=== PATIENT | male | born 1970 | race Native Hawaiian/Other Pacific Islander ===

== ENCOUNTER 2020-01-23 17:58 | Emergency (ER) | payer OTHER ==
[~2020-01-23] VITALS: Ht 172.7 cm; Wt 79.4 kg
[2020-01-23 18:44] LABS: PLATELET COUNT 189 K/uL (142-355)
[2020-01-23 19:35] VITALS: BP 123/86; TEMP 98.2
[2020-01-24] MEDS ORDERED: DIVA500T2 PO (17:26)
[2020-01-24] MEDS ORDERED: FOLI400T2 PO (17:27)
[2020-01-24] MEDS ORDERED: THERA M PLUS PO (17:28)
[2020-01-24] MEDS ORDERED: SERT100T PO (17:29)
[2020-01-24] MEDS ORDERED: THIAMINE50 MG PO (17:30)
[2020-01-24] MEDS ORDERED: TRILEPTAL300 MG PO (17:30)
[2020-01-24] MEDS ORDERED: OLANZAPINE15 MG PO (17:32)
[2020-01-24] MEDS ORDERED: MELADOX3 MG PO (17:32)
[2020-01-24] MEDS ORDERED: TRAZ100T PO (17:33)
[2020-01-24] MEDS ORDERED: PANTPAK PO (17:34)
== END 2020-01-23 19:35 | disposition other institution (70) ==
LOC: ED 17:58
PROVIDERS: Family Medicine
DX: R46.89 Other symptoms and signs involving appearance and behavior (principal); E51.2 Wernicke's encephalopathy; Z04.6 Encounter for general psychiatric examination, requested by authority
CPT/HCPCS: 80053; 81000; 85027; 93005; 99283; 99285

== ENCOUNTER 2020-09-24 14:42 | Emergency (ER) | payer OTHER ==
[~2020-09-24] VITALS: Ht 177.8 cm; Wt 88.5 kg
[2020-09-24 14:42] VITALS: TEMP 97.7
[~2020-09-24 14:42] MED LIST: ACET-206 PO; ARIPIPRAZOLE10 MG PO; CETI10TA PO; CHOL100034 PO; DIPH25CA90 PO; DIVA500T2 PO; DIVALPROEX500 MG PO; ESCI10TA PO; FOLI1TAB26 PO; FOLI400T2 PO; HALO5INJ3 IM; MAGNSUS68 PO; MELADOX3 MG PO; MIRALAX 17GM PAK PO; NICOTINE T14 MG/241 TD; OLANZAPINE15 MG PO; OLANZAPINE5 MG PO; OXCARBAZEPIN300 MG PO; PANTOPRAZOLE 40MG TA PO; PANTPAK PO; QUET100T2 PO; SERT100T PO; THERA M PLUS PO; THIA100T8 PO; THIAMINE50 MG PO; TOPIRAMATE25 MG PO; TRAZ100T PO; TRILEPTAL300 MG PO
[2020-09-24 15:17] LABS: PLATELET COUNT 145 K/uL (142-355)
[2020-09-24 15:23] LABS: POTASSIUM 4.3 mmol/L (3.6-5.2)
[2020-09-24 16:28] VITALS: BP 99/57
[2020-09-24] MEDS ORDERED: DIVA500T2 PO ×2 (17:00→17:01)
[2020-09-24] MEDS ORDERED: PANTOPRAZOLE 40MG TA PO (17:02)
[2020-09-24] MEDS ORDERED: KP FOLIC ACID1 MG PO (17:03)
[2020-09-24] MEDS ORDERED: VITAMIN B1100 M1 PO (17:03)
[2020-09-24] MEDS ORDERED: VITAMIN D31000 UNI4 PO (17:04)
[2020-09-24] MEDS ORDERED: QUETIAPINE200 MG PO (17:05)
[2020-09-24] MEDS ORDERED: LIPITOR40 MG PO (17:06)
[2020-09-24] MEDS ORDERED: ESCITALOPRAM10 MG PO (17:07)
[2020-09-24] MEDS ORDERED: CETIRIZINE5 MG PO (17:07)
[2020-09-24] MEDS ORDERED: TOPIRAMATE50 MG PO (17:08)
[2020-09-24] MEDS ORDERED: LAMO100T PO (17:09)
== END 2020-09-24 16:28 | disposition other institution (70) ==
LOC: ED 14:42
PROVIDERS: Family Medicine
DX: R46.89 Other symptoms and signs involving appearance and behavior (principal); Z11.59 Encounter for screening for other viral diseases; Z04.6 Encounter for general psychiatric examination, requested by authority; I10 Essential (primary) hypertension; F17.210 Nicotine dependence, cigarettes, uncomplicated
CPT/HCPCS: 80053; 85027; 87635; 93005; 99283; 99285; U0003